=== PATIENT | male | born 1955 ===

== ENCOUNTER 2025-03-15 12:00 | Day surgery (SDC) | payer OTHER ==
[~2025-03-15] VITALS: Ht 170.2 cm; Wt 88.0 kg
[~2025-03-15 12:00] MED LIST: ALBU90OI INH; ALLO100 PO; AMOCLA875 PO; ASPI325 PO; BENZ100A PO; Bactrim Ds Tab1 EACH PO; CEPH500 PO; CODGUAEL PO; DICL25ER PO; DICL75ER PO; DYAZIDE 37.5-21 EACH PO; HYDACE5; HYDACE5 PO; HYDHOMSY PO; LISHYD1012 PO; METO25 PO; METO25ER; METO25ER PO; METO50ER PO; METPRE4DP PO; NAPR500ERA PO; Norco 5-325 Ta1 EACH PO; OXYACE5T PO; POTCHL10ER PO; PRED10 PO; Prednisone20 MG PO; ROFE25; RXHYDACE PO; RXNAPNA550 PO; SERT25 PO; SIMV40 PO; SIMV5 PO; TRAM50 PO; TRIHYD253A; TRIHYD253A PO; Tussionex Penn480 ML PO; Ventolin/Prove6.7 GM INH; [UNRECOGNIZED DRUG - OTHER] PO
[2025-03-15 12:24] VITALS: BP 161/99
--- NOTE | 2025-03-15 12:52 | NUR ---
History, Chart, Medications and Allergies reviewed before start of procedure. Lungs clear T/O to Auscultation. Patient confirms NPO status and agrees with scheduled surgery. Pre-Op teaching done. Pt verbalizes understanding. Patient states colon prep results clear.
--- NOTE | 2025-03-15 12:55 | NUR ---
03/15/25 1482 Harley Pittman History, Chart, Medications and Allergies reviewed before start of procedure.MONITOR INTACT WITH CONTINUOUS PULSE OXIMETRY, CONTINUOUS END TITAL CO2, 3-LEAD EKG AND INTERMITTENT BLOOD PRESSURE.O2 VIA POM INTACT THROUGHOUT SEDATION/PROCEDURE.See Anesthesia record.
[2025-03-15 13:25] VITALS: BP 123/80
[2025-03-15 13:30] VITALS: BP 129/72
[2025-03-15 13:45] VITALS: BP 121/81
--- NOTE | 2025-03-15 14:03 | NUR ---
Patient up to Ambulate independently. Gait steady. Discharge instructions reviewed with patient. Patient verbalizes understanding. Copy given to patient to take home. Patient States Post-Procedure ride home has been arranged. Discharged via wheelchair to private car for ride home.
== END 2025-03-15 14:00 | disposition home or self-care (01) ==
LOC: ORSCMMR 12:00 → ORD 13:30 → ORSCMMR 14:00
PROVIDERS: Family Medicine
PROC: 0DBN8ZX Excision of Sigmoid Colon, Via Natural or Artificial Opening Endoscopic, Diagnostic (ICD-10-PCS; principal; 2025-03-15 13:30)
DX: Z12.11 Encounter for screening for malignant neoplasm of colon (principal); K63.5 Polyp of colon; K64.0 First degree hemorrhoids; G47.33 Obstructive sleep apnea (adult) (pediatric); E78.2 Mixed hyperlipidemia; I10 Essential (primary) hypertension; J45.909 Unspecified asthma, uncomplicated; E66.9 Obesity, unspecified; Z79.899 Other long term (current) drug therapy
CPT/HCPCS: 88305; J2704; J7120